=== PATIENT | female | born 1955 | race African-American/Black ===

== ENCOUNTER 2017-12-06 | Emergency (ER) | payer OTHER ==
--- NOTE | 2017-12-06 00:55 | EDPHYS ---
Physician Documentation [facility] Name: Mary Jo Eason Age: 62 yrs Sex: Female : 1955 Arrival Date: 12/06/2017 Time: 00:28 Bed 15 Private MD: ED Physician Onesimo Alcaraz HPI: 12/06 00:50 This 62 yrs old Black Female presents to ER via Ambulatory with complaints of Toothache.gs 00:50 The patient presents with broken tooth/teeth. The problem is located in the upper right gs second molar. Onset: The symptoms/episode began/occurred 1 year(s) ago. Duration: The symptoms are chronic, and have existed for years. Modifying factors: The symptoms are alleviated by nothing, the symptoms are aggravated by cold fluids. Associated signs and symptoms: Pertinent negatives: fever, swelling. Severity of symptoms: At their worst the symptoms were moderate, in the emergency department the symptoms are unchanged. The patient has experienced similar episodes in the past, a few times. Historical: - Allergies: 00:48 Tramadol HCl; ak1 - Home Meds: 00:48 Clonidine Oral [Active]; Clonazepam Oral [Active]; Lisinopril Oral [Active]; paroxetine ak1 oral oral [Active]; Trazodone Oral [Active]; - PMHx: 00:48 Depression; Hypertension; Hypothyroidism; ak1 - Immunization history:: Adult Immunizations unknown. - Social history:: Smoking status: Patient/guardian denies using tobacco. ROS: 00:50 All other systems are negative. gs Exam: 00:50 Head/Face: Normocephalic, atraumatic. Eyes: Pupils equal round and reactive to light, gs extra-ocular motions intact. Lids and lashes normal. Conjunctiva and sclera are non-icteric and not injected. Cornea within normal limits. Periorbital areas with no swelling, redness, or edema. Neck: Trachea midline, no thyromegaly or masses palpated, and no cervical lymphadenopathy. Supple, full range of motion without nuchal rigidity, or vertebral point tenderness. No Meningismus. Cardiovascular: Regular rate and rhythm with a normal S1 and S2. No gallops, murmurs, or rubs. Normal PMI, no JVD. No pulse deficits. Respiratory: Lungs have equal breath sounds bilaterally, clear to auscultation and percussion. No rales, rhonchi or wheezes noted. No increased work of breathing, no retractions or nasal flaring. Skin: Warm, dry with normal turgor. Normal color with no rashes, no lesions, and no evidence of cellulitis. MS/ Extremity: Pulses equal, no cyanosis. Neurovascular intact. Full, normal range of motion. Neuro: Awake and alert, GCS 15, oriented to person, place, time, and situation. Cranial nerves II-XII grossly intact. Motor strength 5/5 in all extremities. Sensory grossly intact. Cerebellar exam normal. Normal gait. 00:50 Constitutional: The patient appears alert, awake. 00:50 ENT: Dental exam: abscess, is not appreciated, fractured teeth are noted, specifically the upper right second molar (#2), gum swelling, not appreciated. Vital Signs: 00:44 BP 143 / 88; Pulse 71; Resp 16; Temp 98.1(TE); Pulse Ox 96% on R/A; Weight 122.47 kg ak1 (R); Height 5 ft. 3 in. (160.02 cm) (R); Pain 10/10; 00:44 Body Mass Index 47.83 (122.47 kg, 160.02 cm) ak1 MDM: 00:50 Patient medically screened. gs 00:50 Differential diagnosis: dental caries. Data reviewed: vital signs, nurses notes. Administered Medications: No medications were administered Disposition: 12/06/17 00:53 Discharged to Home. Impression: Dental caries on pit and fissure surface penetrating into pulp. - Condition is Stable. - Discharge Instructions: Dental Pain. - Medication Reconciliation Form, Thank You Letter, Antibiotic Education, Prescription Opioid Use form. - Follow up: Renato Barron DDS; When: 2 - 3 days; Reason: Re-evaluation by your physician. Signatures: Lottie Funk RN RN ak1 Onesimo Alcaraz MD MD Clay Maloney RN RN
--- NOTE | 2017-12-06 00:55 | ER ---
Nurse's Notes [facility] Name: Mary Jo Eason Age: 62 yrs Sex: Female : 1955 Arrival Date: 12/06/2017 Time: 00:28 Bed 15 Private MD: Diagnosis: Dental caries on pit and fissure surface penetrating into pulp Presentation: 12/06 00:44 Presenting complaint: Patient states: top right tooth pain for "months" pt stated "its ak1 all of them" when asked which tooth is bothering her. Transition of care: patient was not received from another setting of care. Onset of symptoms is unknown. Care prior to arrival: None. 00:44 Method Of Arrival: Ambulatory ak1 00:44 Acuity: WILTON 5 ak1 Triage Assessment: 00:48 General: Appears in no apparent distress. Behavior is calm, cooperative. ak1 00:48 EENT: Reports pain in mouth. ak1 Historical: - Allergies: 00:48 Tramadol HCl; ak1 - Home Meds: 00:48 Clonidine Oral [Active]; Clonazepam Oral [Active]; Lisinopril Oral [Active]; paroxetine ak1 oral oral [Active]; Trazodone Oral [Active]; - PMHx: 00:48 Depression; Hypertension; Hypothyroidism; ak1 - Immunization history:: Adult Immunizations unknown. - Social history:: Smoking status: Patient/guardian denies using tobacco. Screenin:48 Abuse screen: Denies threats or abuse. Denies injuries from another. Nutritional ak1 screening: No deficits noted. Tuberculosis screening: No symptoms or risk factors identified. Fall Risk None identified. Assessment: 00:45 General: Appears uncomfortable, Behavior is anxious, Denies fever, chills. Pain: fu Complains of pain in upper right second molar Pain radiates to face Pain currently is 8 out of 10 on a pain scale. Quality of pain is described as aching, Pain began months ago Is intermittent. Neuro: No deficits noted. Respiratory: Breath sounds are clear bilaterally. Derm: No deficits noted. Musculoskeletal: No deficits noted. Vital Signs: 00:44 BP 143 / 88; Pulse 71; Resp 16; Temp 98.1(TE); Pulse Ox 96% on R/A; Weight 122.47 kg ak1 (R); Height 5 ft. 3 in. (160.02 cm) (R); Pain 06/30; 00:44 Body Mass Index 47.83 (122.47 kg, 160.02 cm) ak1 ED Course: 00:28 Patient arrived in ED. al2 00:42 Onesimo Alcaraz MD is Attending Physician. 00:45 Triage completed. ak1 00:48 Arm band placed on Patient placed in an exam room, on a stretcher, Patient notified of ak1 wait time. 00:48 Patient has correct armband on for positive identification. Bed in low position. Call ak1 light in reach. Side rails up X 1. Door closed. Warm blanket given. 00:53 Renato Barron DDS is Referral Physician. 01:29 Clay Maloney, RN is Primary Nurse. fu 01:37 No provider procedures requiring assistance completed. fu Administered Medications: No medications were administered Outcome: 00:53 Discharge ordered by . gs 01:37 Discharged to home ambulatory. fu 01:37 Condition: stable 01:37 Discharge instructions given to patient, Instructed on discharge instructions, follow up and referral plans. Demonstrated understanding of instructions, follow-up care. 01:44 Patient left the ED. fu Signatures: Lottie Funk, RN RN ak Onesimo Alcaraz MD MD Clay Maloney, Domonique Shaw RN al2
== END 2017-12-06 01:44 | disposition home or self-care (01) ==
CPT/HCPCS: 99281